=== PATIENT | female | born 1960 | race Hispanic/Latino ===

== ENCOUNTER → 2017-09-30 | Outpatient (CLI) | payer OTHER, SELFPAY | END | disposition home or self-care (01) | LOC: RAH 08:09 | PROVIDERS: ATTEND Family Medicine | DX: N63.10 Unspecified lump in the right breast, unspecified quadrant (principal); N63.20 Unspecified lump in the left breast, unspecified quadrant; R92.2 Inconclusive mammogram | CPT/HCPCS: 76641 ==

== ENCOUNTER → 2023-07-27 | Outpatient (CLI) | payer OTHER | END | disposition home or self-care (01) | LOC: OIH 09:39 | PROVIDERS: ATTEND Internal Medicine Cardiovascular Disease | DX: Z13.6 Encounter for screening for cardiovascular disorders (principal) | CPT/HCPCS: 75571 ==